=== PATIENT | male | born 1980 | race Caucasian/White ===

== ENCOUNTER 2017-12-10 09:31 | Emergency (ER) | payer MEDICAID | END 2017-12-10 10:36 | disposition home or self-care (01) | LOC: FTE 09:31 | DX: M79.672 Pain in left foot (principal) | CPT/HCPCS: 73630; 73630-LT; 99283-25 ==

== ENCOUNTER 2018-04-19 16:12 | Inpatient (IN) | payer MEDICAID ==
[2018-04-19 17:15] LABS: ADD MAN DIFF? NO
[2018-04-19 17:18] LABS: BASOPHILS % 0.3 % (0.0-2.0); EOSINOPHILS # 0.1 10^3/ul (0.0-0.5); EOSINOPHILS % 0.6 % (0.0-7.0); HEMATOCRIT 46.4 % (42.0-52.0); HEMOGLOBIN 16.5 g/dl (14.0-18.0); LYMPHOCYTES # 2.7 10^3/ul (0.8-2.9); MEAN CORPUSCULAR HEMOGLOBIN 32.6 pg (29.0-33.0); MEAN CORPUSCULAR HGB CONC 35.6 g/dl (32.0-37.0); MEAN CORPUSCULAR VOLUME 91.7 fl (82.0-101.0); MEAN PLATELET VOLUME 10.3 fl (7.4-10.4); MONOCYTE # 0.8 10^3/ul (0.3-0.9); MONOCYTES % 8.5 % (0.0-11.0); NEUTROPHIL # 5.4 10^3/ul (1.6-7.5); NEUTROPHILS % 60.5 % (39.0-77.0); PLATELET COUNT 250 10^3/UL (140-415); RED BLOOD COUNT 5.06 10^6/ul (4.70-6.10); RED CELL DISTRIBUTION WIDTH 12.1 % (11.5-14.5)
[2018-04-19 17:18] LABS: WHITE BLOOD COUNT 8.8 10^3/ul (4.8-10.8)
[2018-04-19 17:38] LABS: INR 0.95; PARTIAL THROMBOPLASTIN TIME 30.6 Sec (23.0-35.0); PROTIME 12.8 Sec (11.9-14.9)
[2018-04-19 17:41] LABS: D-DIMER 259.32 ng/ml (<460)
[2018-04-19 17:46] LABS: ANION GAP 12 (5-13); BLOOD UREA NITROGEN 23 mg/dl (7-20); CALCIUM 9.5 mg/dl (8.4-10.2); CARBON DIOXIDE 26 mmol/L (21-31); CHLORIDE 104 mmol/L (97-110); CREATININE 0.95 mg/dl (0.61-1.24); Estimated GFR > 60 mL/min (>60); GLUCOSE 97 mg/dl (70-220); POTASSIUM 3.8 mmol/L (3.5-5.1); SODIUM 142 mmol/L (135-144)
[2018-04-19 17:48] LABS: TROPONIN-I < 0.012 ng/ml (0.000-0.120)
[2018-04-19 17:51] LABS: AMPHETAMINE/METHAMPHETAMINE Negative (NEGATIVE); BENZODIAZEPINES Negative (NEGATIVE)
[2018-04-19 17:53] LABS: ETHANOL < 10.0 mg/dl (0-0)
[2018-04-19] MEDS ORDERED: ADENOSINE 2 ML ×3 (17:55→18:55)
[2018-04-19 18:06] LABS: BARBITURATES NEGATIVE (NEGATIVE); CANNABINOIDS NEGATIVE (NEGATIVE); COCAINE NEGATIVE (NEGATIVE); OPIATES NEGATIVE (NEGATIVE)
[2018-04-19] MEDS ORDERED: DILTIAZEM 25 MG INJ (18:58)
[2018-04-19] MEDS ORDERED: NACL 0.9% 3 ML SYG IV (19:30)
[2018-04-19] MEDS ORDERED: ACETAMINOPHEN 325 MG TAB PO (19:30)
[2018-04-19] MEDS ORDERED: ONDANSETRON 4 MG INJ IV (19:30)
[2018-04-19] MEDS: DILTIAZEM 25 MG INJ IV (19:43)
[2018-04-19] MEDS: DILTIAZEM-D5W 125MG/125ML DRIP 125 ML IV (20:23)
[2018-04-19 23:39] LABS: CREATINE KINASE 115 IU/L (23-200)
[2018-04-19 23:51] LABS: CK INDEX 1.1; CK-MB 1.32 ng/ml (0.0-2.4); TROPONIN-I < 0.012 ng/ml (0.000-0.120)
[2018-04-20 05:06] LABS: ADD MAN DIFF? NO
[2018-04-20 05:14] LABS: BASOPHILS % 0.4 % (0.0-2.0); EOSINOPHILS # 0.1 10^3/ul (0.0-0.5); EOSINOPHILS % 1.6 % (0.0-7.0); HEMATOCRIT 44.1 % (42.0-52.0); HEMOGLOBIN 15.4 g/dl (14.0-18.0); LYMPHOCYTES # 1.9 10^3/ul (0.8-2.9); LYMPHOCYTES % 36.8 % (15.0-51.0); MEAN CORPUSCULAR HEMOGLOBIN 32.8 pg (29.0-33.0); MEAN CORPUSCULAR HGB CONC 34.9 g/dl (32.0-37.0); MEAN CORPUSCULAR VOLUME 93.8 fl (82.0-101.0); MEAN PLATELET VOLUME 10.5 fl (7.4-10.4); MONOCYTE # 0.5 10^3/ul (0.3-0.9); NEUTROPHIL # 2.6 10^3/ul (1.6-7.5); NEUTROPHILS % 51.2 % (39.0-77.0); PLATELET COUNT 217 10^3/UL (140-415); RED CELL DISTRIBUTION WIDTH 11.9 % (11.5-14.5)
[2018-04-20 05:14] LABS: WHITE BLOOD COUNT 5.1 10^3/ul (4.8-10.8)
[2018-04-20 05:35] LABS: CREATINE KINASE 84 IU/L (23-200)
[2018-04-20 05:41] LABS: CK INDEX 1.2; CK-MB 1.04 ng/ml (0.0-2.4); TROPONIN-I < 0.012 ng/ml (0.000-0.120)
[2018-04-20 05:47] LABS: ALANINE AMINOTRANSFERASE 50 IU/L (13-69); ALBUMIN 3.9 g/dl (3.3-4.9); ALKALINE PHOSPHATASE 66 IU/L (42-121); ANION GAP 8 (5-13); ASPARTATE AMINO TRANSFERASE 35 IU/L (15-46); BILIRUBIN,INDIRECT 0.7 mg/dl (0-1.1); BILIRUBIN,TOTAL 0.7 mg/dl (0.2-1.3); BLOOD UREA NITROGEN 15 mg/dl (7-20); CALCIUM 9.1 mg/dl (8.4-10.2); CARBON DIOXIDE 27 mmol/L (21-31); CHLORIDE 107 mmol/L (97-110); CHOL/HDL RATIO 5.6 RATIO; CHOLESTEROL 224 mg/dl (100-200); CREATININE 0.86 mg/dl (0.61-1.24); Estimated GFR > 60 mL/min (>60); GLUCOSE 92 mg/dl (70-220); HDL CHOLESTEROL 40 mg/dl (28-63); LDL CHOLESTEROL,CALCULATED 139 mg/dl; MAGNESIUM 2.1 mg/dl (1.7-2.5); POTASSIUM 3.9 mmol/L (3.5-5.1); SODIUM 142 mmol/L (135-144); TOTAL PROTEIN 6.9 g/dl (6.1-8.1); TRIGLYCERIDES 223 mg/dl (0-149)
[2018-04-20 05:50] LABS: HEMOGLOBIN A1C 4.9 % (0-5.9)
[2018-04-20 07:03] LABS: FREE T4 (FREE THYROXINE) 0.96 ng/dl (0.79-2.35)
[2018-04-20 07:04] LABS: FREE T3 4.74 pg/ml (2.77-5.27)
[2018-04-20] MEDS: METOPROLOL 25 MG TAB PO (09:43)
== END 2018-04-20 17:22 | disposition home or self-care (01) | DRG 310 ==
LOC: ICU 19:08 → E/R 16:12 → ICU 04-20 00:13
DX: I47.1 Supraventricular tachycardia (principal); I10 Essential (primary) hypertension; E78.5 Hyperlipidemia, unspecified
CPT/HCPCS: 36415; 71045; 80048; 80053; 80061; 80307; 82550; 82553; 83036; 83735; 84100; 84439; 84443; 84481; 84484; 85025; 85378; 85610; 85730; 87081; 93005; 93306; 99291-25

== ENCOUNTER 2018-09-01 21:38 | Inpatient (IN) | payer MEDICAID, OTHER ==
[~2018-09-01 21:38] MED LIST: ADENOSINE 3 MG/ML SYRINGE IV
[2018-09-01] MEDS: ADENOSINE 6 MG INJ IV ×2 (22:19→22:20)
[2018-09-01] MEDS: DILTIAZEM 25 MG INJ IV (22:21)
[2018-09-01 22:29] LABS: ADD MAN DIFF? NO
[2018-09-01 22:30] LABS: BASOPHILS % 0.5 % (0.0-2.0); EOSINOPHILS # 0.1 10^3/ul (0.0-0.5); EOSINOPHILS % 0.9 % (0.0-7.0); HEMATOCRIT 46.2 % (42.0-52.0); HEMOGLOBIN 16.2 g/dl (14.0-18.0); LYMPHOCYTES % 36.8 % (15.0-51.0); MEAN CORPUSCULAR HEMOGLOBIN 32.6 pg (29.0-33.0); MEAN CORPUSCULAR HGB CONC 35.1 g/dl (32.0-37.0); MEAN PLATELET VOLUME 11.4 fl (7.4-10.4); MONOCYTE # 0.8 10^3/ul (0.3-0.9); MONOCYTES % 9.7 % (0.0-11.0); NEUTROPHIL # 4.2 10^3/ul (1.6-7.5); NEUTROPHILS % 51.9 % (39.0-77.0); PLATELET COUNT 232 10^3/UL (140-415); RED BLOOD COUNT 4.97 10^6/ul (4.70-6.10); RED CELL DISTRIBUTION WIDTH 12.3 % (11.5-14.5)
[2018-09-01 22:30] LABS: WHITE BLOOD COUNT 8.2 10^3/ul (4.8-10.8)
[2018-09-01 22:47] LABS: ANION GAP 9 (5-13); BLOOD UREA NITROGEN 19 mg/dl (7-20); CALCIUM 9.5 mg/dl (8.4-10.2); CARBON DIOXIDE 29 mmol/L (21-31); CHLORIDE 103 mmol/L (97-110); CREATININE 1.45 mg/dl (0.61-1.24); Estimated GFR 54 mL/min (>60); GLUCOSE 93 mg/dl (70-220); POTASSIUM 3.8 mmol/L (3.5-5.1); SODIUM 141 mmol/L (135-144)
[2018-09-01] MEDS: DILTIAZEM-D5W 125MG/125ML DRIP 125 ML IV (22:57)
[2018-09-01] MEDS: ADENOSINE 3 MG/ML SYRINGE IV (22:57)
[2018-09-01 23:01] LABS: TROPONIN-I < 0.012 ng/ml (0.000-0.120)
[2018-09-01] MEDS ORDERED: ACETAMINOPHEN 325 MG TAB PO (23:30)
[2018-09-01] MEDS ORDERED: ONDANSETRON 4 MG INJ IV (23:30)
[2018-09-02] MEDS ORDERED: NITROGLYCERIN (SL) 0.4 MG TAB SL (00:30)
[2018-09-02] MEDS ORDERED: ACETAMINOPHEN 325 MG TAB PO (00:30)
[2018-09-02] MEDS ORDERED: ONDANSETRON 4 MG INJ IV (00:30)
[2018-09-02] MEDS ORDERED: NACL 0.9% 3 ML SYG IV (00:30)
[2018-09-02 05:08] LABS: CREATINE KINASE 162 IU/L (23-200)
[2018-09-02 05:20] LABS: CK INDEX 0.3; CK-MB 0.54 ng/ml (0.0-2.4); TROPONIN-I < 0.012 ng/ml (0.000-0.120)
[2018-09-02] MEDS: ASPIRIN 81 MG TAB PO (08:18)
[2018-09-02] MEDS: METOPROLOL 25 MG TAB PO ×2 (08:19→09:57)
[2018-09-02] MEDS: HEPARIN 5,000 UNIT/1 ML VIAL SC ×2 (08:46→21:46)
[2018-09-02 10:43] LABS: CREATINE KINASE 136 IU/L (23-200)
[2018-09-02 10:57] LABS: CK INDEX 0.3; CK-MB 0.41 ng/ml (0.0-2.4); TROPONIN-I < 0.012 ng/ml (0.000-0.120)
[2018-09-02] MEDS: METOPROLOL 50 MG TAB PO ×2 (11:02→20:59)
[2018-09-02] MEDS: DILTIAZEM-D5W 125MG/125ML DRIP 125 ML IV (11:10)
[2018-09-02 14:04] LABS: FREE T4 (FREE THYROXINE) 1.14 ng/dl (0.79-2.35)
[2018-09-02] MEDS: DILTIAZEM 25 MG INJ IV (17:41)
[2018-09-03 06:01] LABS: ADD MAN DIFF? NO
[2018-09-03 06:04] LABS: WHITE BLOOD COUNT 5.3 10^3/ul (4.8-10.8)
[2018-09-03 06:04] LABS: BASOPHILS % 0.4 % (0.0-2.0); EOSINOPHILS # 0.1 10^3/ul (0.0-0.5); EOSINOPHILS % 1.5 % (0.0-7.0); HEMATOCRIT 47.1 % (42.0-52.0); HEMOGLOBIN 16.1 g/dl (14.0-18.0); LYMPHOCYTES # 1.6 10^3/ul (0.8-2.9); LYMPHOCYTES % 29.4 % (15.0-51.0); MEAN CORPUSCULAR HEMOGLOBIN 32.1 pg (29.0-33.0); MEAN CORPUSCULAR HGB CONC 34.2 g/dl (32.0-37.0); MEAN PLATELET VOLUME 10.7 fl (7.4-10.4); MONOCYTE # 0.5 10^3/ul (0.3-0.9); MONOCYTES % 9.8 % (0.0-11.0); NEUTROPHIL # 3.1 10^3/ul (1.6-7.5); NEUTROPHILS % 58.7 % (39.0-77.0); PLATELET COUNT 203 10^3/UL (140-415); RED BLOOD COUNT 5.01 10^6/ul (4.70-6.10); RED CELL DISTRIBUTION WIDTH 12.4 % (11.5-14.5)
[2018-09-03 07:10] LABS: CHOL/HDL RATIO 6.4 RATIO; HDL CHOLESTEROL 40 mg/dl (28-63); LDL CHOLESTEROL,CALCULATED 156 mg/dl; TRIGLYCERIDES 302 mg/dl (0-149)
[2018-09-03 07:10] LABS: CHOLESTEROL 256 mg/dl (100-200)
[2018-09-03 07:27] LABS: ALANINE AMINOTRANSFERASE 46 IU/L (13-69); ALBUMIN 4.1 g/dl (3.3-4.9); ALBUMIN/GLOBULIN RATIO 1.24; ALKALINE PHOSPHATASE 64 IU/L (42-121); ANION GAP 9 (5-13); ASPARTATE AMINO TRANSFERASE 36 IU/L (15-46); BILIRUBIN,INDIRECT 0.9 mg/dl (0-1.1); BILIRUBIN,TOTAL 0.9 mg/dl (0.2-1.3); BLOOD UREA NITROGEN 16 mg/dl (7-20); CALCIUM 9.3 mg/dl (8.4-10.2); CARBON DIOXIDE 26 mmol/L (21-31); CHLORIDE 107 mmol/L (97-110); CREATININE 0.86 mg/dl (0.61-1.24); Estimated GFR > 60 mL/min (>60); GLUCOSE 109 mg/dl (70-220); MAGNESIUM 2.1 mg/dl (1.7-2.5); POTASSIUM 4.3 mmol/L (3.5-5.1); SODIUM 142 mmol/L (135-144); TOTAL PROTEIN 7.4 g/dl (6.1-8.1)
[2018-09-03] MEDS: ASPIRIN 81 MG TAB PO (08:23)
[2018-09-03] MEDS: METOPROLOL 50 MG TAB PO (08:24)
[2018-09-03] MEDS: HEPARIN 5,000 UNIT/1 ML VIAL SC (08:29)
[2018-09-03] MEDS ORDERED: DILTIAZEM 30 MG TAB PO (21:00)
== END 2018-09-03 18:19 | disposition home or self-care (01) | DRG 309 ==
LOC: E/R 21:38 → TEL 23:28
DX: I47.1 Supraventricular tachycardia (principal); N17.9 Acute kidney failure, unspecified; E78.2 Mixed hyperlipidemia; E66.9 Obesity, unspecified
CPT/HCPCS: 36415; 71045; 80048; 80053; 80061; 82550; 82553; 83735; 84439; 84443; 84484; 85025; 93005; 96365; 96375; 96376; 99285-25